=== PATIENT | male | born 1945 | race Caucasian/White ===

== ENCOUNTER 2024-12-08 09:45 | Inpatient (IN) | payer OTHER ==
[~2024-12-08] VITALS: Ht 177.8 cm; Wt 95.5 kg
[2024-12-08] VITALS (11 sets, daily range): BP systolic 100–131; BP diastolic 60–85
[~2024-12-08 09:45] MED LIST: C COMPLEX1000 M1 PO; GABA300 PO; HYDCHL25 PO; LISI20 PO; MULTIVITAMIN W/IRON PO; SERT100 PO; Ventolin5 MG/1 ML INH; ZOCOR20 MG PO
[2024-12-08] MEDS ORDERED: Albuterol 2.5 MG/3 ML VIAL INH PRN ×2 (10:25→12:55)
[2024-12-08] MEDS ORDERED: Tranexamic Acid 100 ML IV SCH (10:50)
[2024-12-08] MEDS ORDERED: Chlorhexidine Mouth Care 15 ML UDC MT SCH (10:50)
[2024-12-08] MEDS ORDERED: CeFAZolin Sodium 2,000 MG in NS 100 ML IV SCH ×2 (10:50→21:00)
[2024-12-08] MEDS ORDERED: Bupivacaine 0.5% HCl 5 MG/ML 30MLVIAL ONE (11:10)
[2024-12-08] MEDS ORDERED: Dexamethasone Sod Phos 10 MG/ML 1ML VIAL ONE ×2 (11:11→12:22)
[2024-12-08] MEDS ORDERED: Prochlorperazine Edisylate 10 mg Vial IV PRN ×2 (12:15→12:55)
[2024-12-08] MEDS ORDERED: Magnesium Hydroxide Conc 10 ML UDC PO PRN (12:20)
[2024-12-08] MEDS ORDERED: FentaNYL Citrate 50 MCG/ML 2 ML Injection ONE (12:22)
[2024-12-08] MEDS ORDERED: Ketorolac Tromethamine 30mg Vial ONE (12:22)
[2024-12-08] MEDS ORDERED: Ondansetron HCl 2 MG / ML 2ML Vial ONE (12:22)
[2024-12-08] MEDS ORDERED: Rocuronium Bromide 10 MG/ML 5ML Injection IV ONE ×3 (12:22→14:15)
[2024-12-08] MEDS ORDERED: FLU VACC TS2025-26(6MOS UP)/PF 45 MCG/0.5 ML SYRINGE IM SCH (12:25)
[2024-12-08] MEDS ORDERED: Metoclopramide HCl 5MG / ML 2ML Vial IV PRN (12:25)
[2024-12-08] MEDS ORDERED: HYDROmorphone HCl/Pf 1MG SYR IV PRN ×2 (12:25→13:00)
[2024-12-08] MEDS ORDERED: Ondansetron HCl 2 MG / ML 2ML Vial IV PRN (12:25)
--- NOTE | 2024-12-08 12:27 | NUR ---
1020 History, Chart, Medications and Allergies reviewed before start of procedure.Lungs clear T/O to Auscultation. Pre-Op teaching done. Pt verbalizes understanding. Patient confirms NPO status and agrees with scheduled surgery. 1214 TIME OUT DONE FOR LEFT SHOULDER INTERSCALINE BLOCK BY DR ETIENNE. BLOCK START TIME 1215 BLOCK END TIME 1220 PT RUBEN PROCEDURE WELL
[2024-12-08] MEDS ORDERED: Phenylephrine HCl 100 MCG/ML-NS 10MLSYR (1MG/10ML) ONE ×3 (12:46→14:53)
[2024-12-08] MEDS ORDERED: FentaNYL Citrate 50 MCG/ML 2 ML Injection IV PRN (13:00)
[2024-12-08] MEDS ORDERED: Sugammadex Sodium 200 MG/2ML SDV (100 MG/ML) ONE (14:58)
[2024-12-08] MEDS ORDERED: Tranexamic Acid 100 ML IV ONE (15:28)
--- NOTE | 2024-12-08 16:00 | NUR ---
POST OP ARRIVAL TO SURGICAL UNIT VIA HOSPITAL BED. ALERT, ORIENTED, & PLEASANT. ASSESSMENT CHARTED. DENIES PAIN. DENIES N/V SO SNACKS & DRINKS GIVEN. L ARM IN SLING. UNABLE TO WIGGLE FINGERS. CRYOTHERAPY IN PLACE.
[2024-12-08] MEDS ORDERED: Ketorolac Tromethamine 15mg Vial IV SCH (18:00)
[2024-12-09 00:16] VITALS: BP 115/67
[2024-12-09 04:45] VITALS: BP 122/77
[2024-12-09 05:07] LABS: BASOPHILS ABSOLUTE AUTO 0.02 K/mm3 (0.00-0.23); BASOPHILS PERCENT AUTO 0 % (0-2); EOSINOPHILS ABSOLUTE AUTO 0.01 K/mm3 (0.00-0.68); EOSINOPHILS PERCENT AUTO 0 % (0-6); Hematocrit 33.9 % (37.0-53.0); Hemoglobin 11.6 g/dL (13.5-17.5); IMMATURE GRAN ABSOLUTE AUTO 0.05 K/mm3 (0.00-0.10); IMMATURE GRAN PERCENT AUTO 0 % (0-1); LYMPHOCYTES ABSOLUTE AUTO 1.07 K/mm3 (0.84-5.20); LYMPHOCYTES PERCENT AUTO 9 % (21-46); MONOCYTES ABSOLUTE AUTO 1.41 K/mm3 (0.16-1.47); MONOCYTES PERCENT AUTO 12 % (4-13); Mean Corpuscular HGB Conc 34.2 g/dL (31.5-36.5); Mean Corpuscular Volume 87 fL (80-100); NEUTROPHILS ABSOLUTE AUTO 9.13 K/mm3 (1.96-9.15); NEUTROPHILS PERCENT AUTO 78 % (41-73); NRBC ABSOLUTE 0.00 K/mm3 (0.00-0.02); NRBC Auto 0.0 /100 WBC (0.0-0.2); Platelet Count 235 K/mm3 (150-400); RDW Coefficient Variation 13.0 % (11.7-14.2); RDW Standard Deviation 40.9 fL (35.1-46.3)
[2024-12-09 05:37] LABS: Anion Gap 10.0 mmol/L (3-11); Blood Urea Nitrogen 32.0 mg/dL (8-24); CO2, Blood 27.0 mmol/L (21-32); Calcium, Blood 9.2 mg/dL (8.5-10.1); Chloride, Blood 100.0 mmol/L (98-108); Creatinine, Blood 1.28 mg/dL (0.60-1.20); Glucose, Blood 139.0 mg/dL (70-99); Magnesium, Blood 1.9 mg/dL (1.6-2.4); Potassium, Blood 4.8 mmol/L (3.5-5.5); Sodium, Blood 132.0 mmol/L (136-145)
--- NOTE | 2024-12-09 06:26 | NUR ---
SHIFT SUMMARY POD 1 L TOTAL SHOULDER ARTHROPLASTY. PRINEO DRESSING C/D/I. POLAR PACK IN PLACE. NONWEIGHT BEARING LUE. PT PAIN MANAGED WELL PER EMAR. PLAN TO DISCHARGE HOME TODAY. CALL LIGHT WITHIN REACH.
[2024-12-09 07:11] VITALS: BP 125/72
[2024-12-09] MEDS ORDERED: ACET500 PO (10:00)
[2024-12-09] MEDS ORDERED: DOCU100 PO (10:01)
[2024-12-09] MEDS ORDERED: ASPI81CH PO (10:01)
[2024-12-09] MEDS ORDERED: OXYC5 PO (10:01)
--- NOTE | 2024-12-09 11:20 | NUR ---
PT DC'D @1119 ASSUMED CARE OF PT @0700. VSS. AXO4. MINIMAL NUMBNESS TO L THUMB/INDEX FINGER NOTED - PT STATES IS LESSENING - WIGGLES ALL DIGITS WELL. IMMOBILIZER PLACED AND IN POSITION. WORKED WITH PHYSICAL THERAPY/OT , TOLERATED WELL, DEEMED OK TO DC. PRINEO DRESSING CDI - AQUACEL PROVIDED IF NEEDED FOR AT HOME. POLAR PACK IN PLACE, PT DC'D WITH IT IN HAND. DC PACKET COMPLETED, PT AND SPOUSE EDUCATED TOGETHER. IV PULLED. PT WILL BELONGINGS. WHEELED OUT TO CAR @7305
== END 2024-12-09 11:11 | disposition home or self-care (01) | DRG 483 ==
LOC: ORSCMMR 09:45 → ORD 11:30 → ORSCMMR 12:13 → SURS 12:13
PROVIDERS: Orthopaedic Surgery; ADMIT Orthopaedic Surgery
PROC: 0RRK0JZ Replacement of Left Shoulder Joint with Synthetic Substitute, Open Approach (ICD-10-PCS; principal; 2024-12-08 11:30)
DX: M19.012 Primary osteoarthritis, left shoulder (principal); I10 Essential (primary) hypertension; E78.5 Hyperlipidemia, unspecified; F32.A Depression, unspecified; Z87.891 Personal history of nicotine dependence; Z96.652 Presence of left artificial knee joint; Z96.611 Presence of right artificial shoulder joint; Z79.899 Other long term (current) drug therapy; Z88.1 Allergy status to other antibiotic agents
CPT/HCPCS: 36415; 73030; 80048; 83735; 85025; 97110; 97116; 97162; 97165; 97530; A9270; C1713; C1776; J0690; J1100; J1885; J2371; J2405; J2704; J3010; J7120